=== PATIENT | female | born 1975 | race Caucasian/White ===

== ENCOUNTER 2019-12-14 18:41 | Inpatient (IN) ==
[2019-12-14] MEDS ORDERED: Naloxone 0.4 MG/ML INJ IVP PRN (22:17)
[2019-12-14] MEDS ORDERED: Ondansetron 4 MG/2 ML VIAL IVP PRN (22:17)
[2019-12-14] MEDS ORDERED: Dextrose Gel 15 GM/37.5 ML TUBE PO PRN ×2 (22:49)
[2019-12-14] MEDS ORDERED: *HR* Dextrose 50 % in Water (Syg) 50 ML SYRINGE IVP PRN (22:49)
[2019-12-14] MEDS ORDERED: D5% in Water 1,000 ML IVC PRN (22:49)
[2019-12-14] MEDS ORDERED: 0.9 % Sodium Chloride 500 ML IVC PRN (22:52)
[2019-12-14 23:28] LABS: Basophils % 0.3 %; Eosinophils # 0.3 K/mcL (0.0-0.6); Eosinophils % 2.7 %; Hemoglobin 9.4 g/dL (11.5-15.4); Immature Granulocytes % 0.7 % (0-4); Lymphocytes # 1.7 K/mcL (0.6-4.6); Lymphocytes % 16.7 %; Mean Corpuscular HGB Conc 31.3 g/dL (31.6-35.5); Mean Corpuscular Hemoglobin 31.8 pg (28.0-33.3); Mean Corpuscular Volume 101.4 fL (83.0-100.0); Mean Platelet Volume 9.6 fL (9.4-12.4); Monocytes # 0.6 K/mcL (0.0-1.3); Monocytes % 5.4 %; Neutrophils # 7.5 K/mcL (1.6-8.9); Platelet Count 533 K/mcL (140-400); Red Blood Count 2.96 M/mcL (3.82-4.97); Red Cell Distribution Width 13.9 % (11.5-14.5); Segmented Neutrophils % 74.2 %; White Blood Count 10.2 K/mcL (4.3-11.1)
[2019-12-14] MEDS: Piperacillin/Tazobactam 3.375 GM in 0.9 % Sodium Chloride Mini Bag 100 ML IVPB SCH (23:37)
[2019-12-14 23:42] LABS: BUN/Creatinine Ratio 23 (6-26); Blood Urea Nitrogen 12 mg/dL (6-20); Calcium 8.1 mg/dL (8.6-10.3); Carbon Dioxide 26 mEq/L (23-29); Chloride 99 mEq/L (98-107); Glucose 293 mg/dL (70-105); Osmolality,Calculated 291 (280-300); Potassium 3.1 mEq/L (3.5-5.1); Sodium 135 mEq/L (136-145); eGFR For African Americans > 60 (> 60); eGFR For Non-African Americans > 60 (> 60)
[2019-12-15] MEDS: Insulin DETEMIR 100 UNIT/ML X5UNITS SQ SCH ×2 (00:33→20:19)
[2019-12-15 00:40] LABS: Bilirubin,Urine Small (Negative); Blood,Urine Moderate (Negative); Clarity,Urine Cloudy (Clear); Color,Urine Dark Yellow (Yellow); Glucose,Urine (UA) 250 mg/dL (Normal); Ketones,Urine Negative (Negative); Leukocyte Esterase,Urine Large (Negative); Nitrite,Urine Negative (Negative); Protein,Urine 30 mg/dL (Neg-Trace); Specific Gravity,Urine 1.024 (1.010-1.025); Urobilinogen,Urine Normal (Normal)
[2019-12-15 00:43] LABS: Bacteria,Urine Few per hpf (None-Few); Hyaline Casts,Urine Moderate per lpf (None-Few); Squamous Epithelial Cell,Urine Many per lpf (None-Few); WBC,Urine TNTC per hpf (0-3)
[2019-12-15 01:16] LABS: Yeast,Urine Few per hpf (None Seen)
[2019-12-15] MEDS: QUEtiapine Fumarate 100 MG TABLET PO SCH ×2 (02:07→20:17)
[2019-12-15] MEDS: *HR* OxyCODONE/APAP 5/325 TABLET PO PRN ×3 (02:07→18:56)
[2019-12-15] MEDS: Venlafaxine XR (24 HR) 75 MG CAP.ER.24H PO SCH ×2 (02:07→20:17)
[2019-12-15] MEDS: Ringers Solution, Lactated 1,000 ML IVC SCH ×2 (03:58→11:08)
[2019-12-15] MEDS: *HR* Heparin 5,000 UNIT/ML VIAL SQ SCH ×3 (05:43→20:17)
[2019-12-15] MEDS: Insulin LISPRO 300 UNITS/3 ML VIAL SQ SCH ×4 (07:50→20:20)
[2019-12-15] MEDS: Piperacillin/Tazobactam 3.375 GM in 0.9 % Sodium Chloride Mini Bag 100 ML IVPB SCH ×3 (07:51→23:58)
[2019-12-15 08:46] LABS: Basophils % 0.2 %; Eosinophils # 0.2 K/mcL (0.0-0.6); Eosinophils % 2.2 %; Hematocrit 28.4 % (35.3-44.9); Hemoglobin 8.9 g/dL (11.5-15.4); Immature Granulocytes % 0.7 % (0-4); Lymphocytes # 1.9 K/mcL (0.6-4.6); Lymphocytes % 20.7 %; Mean Corpuscular HGB Conc 31.3 g/dL (31.6-35.5); Mean Corpuscular Hemoglobin 31.1 pg (28.0-33.3); Mean Corpuscular Volume 99.3 fL (83.0-100.0); Mean Platelet Volume 9.2 fL (9.4-12.4); Monocytes # 0.6 K/mcL (0.0-1.3); Monocytes % 6.5 %; Neutrophils # 6.2 K/mcL (1.6-8.9); Platelet Count 493 K/mcL (140-400); Red Blood Count 2.86 M/mcL (3.82-4.97); Red Cell Distribution Width 13.6 % (11.5-14.5); Segmented Neutrophils % 69.7 %; White Blood Count 8.9 K/mcL (4.3-11.1)
[2019-12-15 08:54] LABS: Estimated Average Glucose 260 mg/dl
[2019-12-15 09:09] LABS: BUN/Creatinine Ratio 20 (6-26); Blood Urea Nitrogen 8 mg/dL (6-20); Calcium 8.4 mg/dL (8.6-10.3); Carbon Dioxide 26 mEq/L (23-29); Chloride 105 mEq/L (98-107); Glucose 97 mg/dL (70-105); Magnesium 1.8 mg/dL (1.6-2.6); Osmolality,Calculated 282 (280-300); Potassium 3.3 mEq/L (3.5-5.1); Sodium 137 mEq/L (136-145); eGFR For African Americans > 60 (> 60); eGFR For Non-African Americans > 60 (> 60)
[2019-12-15] MEDS ORDERED: Potassium Chloride Elixir 20 MEQ/15 ML UDC PO ONE (12:04)
[2019-12-15] MEDS: *HR* Metformin 500 MG TABLET PO SCH (17:14)
[2019-12-16 01:47] LABS: Hematocrit 28.7 % (35.3-44.9); Hemoglobin 8.9 g/dL (11.5-15.4); Mean Corpuscular Hemoglobin 31.8 pg (28.0-33.3); Mean Corpuscular Volume 102.5 fL (83.0-100.0); Mean Platelet Volume 9.1 fL (9.4-12.4); Platelet Count 483 K/mcL (140-400); Red Cell Distribution Width 13.7 % (11.5-14.5); White Blood Count 9.6 K/mcL (4.3-11.1)
[2019-12-16 02:15] LABS: BUN/Creatinine Ratio 20 (6-26); Blood Urea Nitrogen 10 mg/dL (6-20); Calcium 8.4 mg/dL (8.6-10.3); Carbon Dioxide 25 mEq/L (23-29); Chloride 108 mEq/L (98-107); Glucose 132 mg/dL (70-105); Osmolality,Calculated 291 (280-300); Potassium 3.3 mEq/L (3.5-5.1); Sodium 140 mEq/L (136-145); eGFR For African Americans > 60 (> 60); eGFR For Non-African Americans > 60 (> 60)
[2019-12-16] MEDS: *HR* Heparin 5,000 UNIT/ML VIAL SQ SCH ×3 (04:59→20:24)
[2019-12-16] MEDS: Insulin LISPRO 300 UNITS/3 ML VIAL SQ SCH ×4 (07:30→20:08)
[2019-12-16] MEDS ORDERED: Potassium Chloride Elixir 20 MEQ/15 ML UDC PO ONE (07:55)
[2019-12-16] MEDS: *HR* Metformin 500 MG TABLET PO SCH ×2 (09:06→17:12)
[2019-12-16] MEDS: Piperacillin/Tazobactam 3.375 GM in 0.9 % Sodium Chloride Mini Bag 100 ML IVPB SCH ×3 (09:06→23:45)
[2019-12-16] MEDS: *HR* OxyCODONE/APAP 5/325 TABLET PO PRN ×3 (09:15→21:26)
[2019-12-16] MEDS: QUEtiapine Fumarate 100 MG TABLET PO SCH (20:06)
[2019-12-16] MEDS: Venlafaxine XR (24 HR) 75 MG CAP.ER.24H PO SCH (20:06)
[2019-12-16] MEDS: Insulin DETEMIR 100 UNIT/ML X5UNITS SQ SCH (20:07)
[2019-12-17] MEDS: *HR* Heparin 5,000 UNIT/ML VIAL SQ SCH ×3 (04:06→21:15)
[2019-12-17 05:35] LABS: Hematocrit 29.5 % (35.3-44.9); Hemoglobin 8.8 g/dL (11.5-15.4); Mean Corpuscular HGB Conc 29.8 g/dL (31.6-35.5); Mean Corpuscular Volume 103.9 fL (83.0-100.0); Mean Platelet Volume 9.4 fL (9.4-12.4); Platelet Count 514 K/mcL (140-400); Red Blood Count 2.84 M/mcL (3.82-4.97); White Blood Count 9.9 K/mcL (4.3-11.1)
[2019-12-17 05:52] LABS: BUN/Creatinine Ratio 19 (6-26); Blood Urea Nitrogen 10 mg/dL (6-20); Calcium 8.7 mg/dL (8.6-10.3); Carbon Dioxide 25 mEq/L (23-29); Chloride 105 mEq/L (98-107); Glucose 148 mg/dL (70-105); Magnesium 1.5 mg/dL (1.6-2.6); Osmolality,Calculated 292 (280-300); Potassium 3.5 mEq/L (3.5-5.1); Sodium 140 mEq/L (136-145); eGFR For African Americans > 60 (> 60); eGFR For Non-African Americans > 60 (> 60)
[2019-12-17] MEDS: *HR* Metformin 500 MG TABLET PO SCH ×2 (07:47→17:51)
[2019-12-17] MEDS: Insulin LISPRO 300 UNITS/3 ML VIAL SQ SCH ×4 (07:47→21:14)
[2019-12-17] MEDS: *HR* OxyCODONE/APAP 5/325 TABLET PO PRN ×2 (07:48→18:03)
[2019-12-17] MEDS: Piperacillin/Tazobactam 3.375 GM in 0.9 % Sodium Chloride Mini Bag 100 ML IVPB SCH ×3 (07:49→23:48)
[2019-12-17] MEDS: Insulin DETEMIR 100 UNIT/ML X5UNITS SQ SCH (21:14)
[2019-12-17] MEDS: Venlafaxine XR (24 HR) 75 MG CAP.ER.24H PO SCH (21:14)
[2019-12-17] MEDS: QUEtiapine Fumarate 100 MG TABLET PO SCH (21:15)
[2019-12-18] MEDS: *HR* Heparin 5,000 UNIT/ML VIAL SQ SCH ×3 (05:27→21:08)
[2019-12-18] MEDS: Insulin LISPRO 300 UNITS/3 ML VIAL SQ SCH ×4 (08:12→21:08)
[2019-12-18] MEDS: *HR* Metformin 500 MG TABLET PO SCH ×2 (08:15→17:02)
[2019-12-18] MEDS: Piperacillin/Tazobactam 3.375 GM in 0.9 % Sodium Chloride Mini Bag 100 ML IVPB SCH ×3 (08:15→23:20)
[2019-12-18] MEDS: *HR* OxyCODONE/APAP 5/325 TABLET PO PRN ×2 (08:23→15:24)
[2019-12-18] MEDS ORDERED: tiZANidine 4 MG TABLET PO PRN (11:07)
[2019-12-18] MEDS ORDERED: BENZOYL PEROXIDE APPL TP SCH (11:15)
[2019-12-18] MEDS: Gabapentin 400 MG CAPSULE PO SCH ×2 (15:10→21:07)
[2019-12-18] MEDS: Loratadine 10 MG TABLET PO SCH (17:03)
[2019-12-18] MEDS: Venlafaxine XR (24 HR) 75 MG CAP.ER.24H PO SCH (21:07)
[2019-12-18] MEDS: QUEtiapine Fumarate 100 MG TABLET PO SCH (21:08)
[2019-12-18] MEDS: Insulin DETEMIR 100 UNIT/ML X5UNITS SQ SCH (21:08)
[2019-12-19] MEDS: *HR* Heparin 5,000 UNIT/ML VIAL SQ SCH ×3 (04:36→22:04)
[2019-12-19] MEDS ORDERED: Clindamycin 600 MG/50 ML 600 MG/50 ML IV.SOLN IVPB SCH (08:00)
[2019-12-19] MEDS: Insulin LISPRO 300 UNITS/3 ML VIAL SQ SCH ×4 (08:23→22:04)
[2019-12-19] MEDS ORDERED: CLINDAMYCIN PHOSPHATE APPL TP SCH (09:00)
[2019-12-19] MEDS: DilTIAZem CD (24hr) 120 MG CAP.ER.24H PO SCH (09:16)
[2019-12-19] MEDS: Gabapentin 400 MG CAPSULE PO SCH ×3 (09:16→22:03)
[2019-12-19] MEDS: Piperacillin/Tazobactam 3.375 GM in 0.9 % Sodium Chloride Mini Bag 100 ML IVPB SCH ×3 (09:16→23:35)
[2019-12-19] MEDS: Magnesium Oxide 400 MG TABLET PO SCH (09:16)
[2019-12-19] MEDS: *HR* Metformin 500 MG TABLET PO SCH ×2 (09:16→17:09)
[2019-12-19] MEDS: *HR* OxyCODONE/APAP 5/325 TABLET PO PRN (09:23)
[2019-12-19] MEDS ORDERED: Aminoglycoside Consult 1 EACH MC ONE (11:48)
[2019-12-19] MEDS: Loratadine 10 MG TABLET PO SCH (17:09)
[2019-12-19] MEDS: Venlafaxine XR (24 HR) 75 MG CAP.ER.24H PO SCH (22:03)
[2019-12-19] MEDS: Insulin DETEMIR 100 UNIT/ML X5UNITS SQ SCH (22:03)
[2019-12-19] MEDS: QUEtiapine Fumarate 100 MG TABLET PO SCH (22:03)
[2019-12-20 02:32] LABS: Hematocrit 27.8 % (35.3-44.9); Hemoglobin 8.5 g/dL (11.5-15.4); Mean Corpuscular HGB Conc 30.6 g/dL (31.6-35.5); Mean Corpuscular Hemoglobin 31.8 pg (28.0-33.3); Mean Corpuscular Volume 104.1 fL (83.0-100.0); Platelet Count 490 K/mcL (140-400); Red Blood Count 2.67 M/mcL (3.82-4.97); Red Cell Distribution Width 13.9 % (11.5-14.5)
[2019-12-20 02:42] LABS: BUN/Creatinine Ratio 14 (6-26); Blood Urea Nitrogen 11 mg/dL (6-20); Calcium 8.8 mg/dL (8.6-10.3); Carbon Dioxide 29 mEq/L (23-29); Chloride 105 mEq/L (98-107); Glucose 126 mg/dL (70-105); Osmolality,Calculated 297 (280-300); Potassium 3.2 mEq/L (3.5-5.1); Sodium 143 mEq/L (136-145); eGFR For African Americans > 60 (> 60); eGFR For Non-African Americans > 60 (> 60)
[2019-12-20] MEDS: *HR* Heparin 5,000 UNIT/ML VIAL SQ SCH (05:25)
[2019-12-20] MEDS: Insulin LISPRO 300 UNITS/3 ML VIAL SQ SCH ×2 (08:05→11:00)
[2019-12-20] MEDS: Gabapentin 400 MG CAPSULE PO SCH (08:06)
[2019-12-20] MEDS: *HR* Metformin 500 MG TABLET PO SCH (08:06)
[2019-12-20] MEDS: DilTIAZem CD (24hr) 120 MG CAP.ER.24H PO SCH (08:06)
[2019-12-20] MEDS: Magnesium Oxide 400 MG TABLET PO SCH (08:06)
[2019-12-20] MEDS: Piperacillin/Tazobactam 3.375 GM in 0.9 % Sodium Chloride Mini Bag 100 ML IVPB SCH (08:06)
[2019-12-20 10:43] VITALS: BP 126/77
== END 2019-12-20 11:49 | disposition home or self-care (01) | DRG 720 ==
LOC: 2ANU → SUATTDRO 21:13
PROVIDERS: ADMIT Internal Medicine; ATTEND Internal Medicine